=== PATIENT | female | born 1975 ===

== ENCOUNTER → 2016-08-31 | Outpatient (REF) ==
[2016-08-31 07:47] LABS: PH 6 (5-8); SQUAMOUS EPITHELIAL 0-2 /hpf; URINE APPEARANCE Clear; URINE BACTERIA None Seen /hpf; URINE BILIRUBIN Negative (NEGATIVE); URINE BLOOD Negative (NEGATIVE); URINE COLOR Yellow; URINE GLUCOSE Negative (NEGATIVE); URINE KETONE Negative (NEGATIVE); URINE RBC 0-2 /hpf; URINE UROBILINOGEN Negative (NEGATIVE); URINE WBC 0-2 /hpf
== END ==
LOC: ZMSC 07:19
PROVIDERS: Orthopaedic Surgery
DX: Z02.89 Encounter for other administrative examinations (principal)